=== PATIENT | male | born 1965 | race Caucasian/White ===

== ENCOUNTER 2016-10-25 09:15 | Inpatient (IN) | payer OTHER ==
[2016-10-25 09:38] VITALS: BMI 28.7
--- NOTE | 2016-10-25 10:02 | HP ---
CIWA Score - CIWA Score Nausea/Vomitin-Mild Nausea/No Vomiting Muscle Tremors: 4-Moderate,w/Arms Extend Anxiety: 4-Mod. Anxious/Guarded Agitation: 1-Slight > Activity Paroxysmal Sweats: 1-Minimal Palms Moist Orientation: 0-Oriented Tacttile Disturbances: 1-Very Mild Itch/Numbness Auditory Disturbances: 1-Very Mild Visual Disturbances: 1-Very Mild Sensitivity Headache: 1-Very Mild CIWA-Ar Total Score: 15 Admission ROS BHS - HPI Chief Complaint: I'm here to get clean,I was doing good then relapsed - I want help Allergies/Adverse Reactions: Allergies Allergy/AdvReac Type Severity Reaction Status Date / Time No Known Allergies Allergy Verified 10/25/16 09:54 History of Present Illness: 51 yo gentleman here for detox from alcohol, crack and delano dust use. Previously here in 2004. No seizures but does have black outs. Exam Limitations: Clinical Condition - Ebola screening Have you traveled outside of the country in the last 21 days: No Have you had contact with anyone from an Ebola affected area: No Have you been sick,other than usual withdrawal symptoms: No Do you have a fever: No - Review of Systems Constitutional: Loss of Appetite, Changes in sleep, Weakness EENT: reports: No Symptoms Reported Respiratory: reports: No Symptoms reported Cardiac: reports: No Symptoms Reported GI: reports: Nausea, Indigestion : reports: Frequency Musculoskeletal: reports: Joint Pain Integumentary: reports: Dryness Neuro: reports: Headache, Tremors Endocrine: reports: No Symptoms Reported Hematology: reports: No Symptoms Reported Psychiatric: reports: Mood/Affect Appropiate, Anxious Other Systems: Reviewed and Negative Patient History - Patient Medical History Hx Anemia: No Hx Asthma: No Hx Chronic Obstructive Pulmonary Disease (COPD): No Hx Cancer: No Hx Cardiac Disorders: No Hx Congestive Heart Failure: No Hx Hypertension: No Hx Hypercholesterolemia: No Hx Pacemaker: No HX Cerebrovascular Accident: No Hx Seizures: No Hx Dementia: No Hx Diabetes: No Hx Gastrointestinal Disorders: No Hx Liver Disease: No Hx Genitourinary Disorders: No Hx Sexually Transmitted Disorders: No Hx Renal Disease (ESRD): No Hx Thyroid Disease: No Hx Human Immunodeficiency Virus (HIV): No Hx Hepatitis C: No Hx Depression: Yes (hx meds) Hx Suicide Attempt: Yes (a week ago - took bottle of lexapro ) Hx Bipolar Disorder: Yes Hx Schizophrenia: No - Patient Surgical History Past Surgical History: Yes Other Surgical History: fractured right tibula/fibula with dislocated right ankle around 2013 - PPD History Previous Implant?: Yes Documented Results: Negative w/o proof Implanted On Prior [facility] Admission?: No PPD to be Administered?: Yes - Reproductive History Patient is a Female of Child Bearing Age (11 -55 yrs old): No (male) - Smoking Cessation Smoking history: Current every day smoker Have you smoked in the past 12 months: Yes Aproximately how many cigarettes per day: 20 Initiated information on smoking cessation: Yes 'Breaking Loose' booklet given: 10/25/16 (give on floor) - Substance & Tx. History Hx Alcohol Use: Yes Hx Substance Use: Yes Substance Use Type: Alcohol, Cocaine Hx Substance Use Treatment: Yes (detox, rehab) - Substances Abused Alcohol Route: Oral Frequency: Daily Amount used: three 40oz beers Age of first use: 13 Date of Last Use: 10/24/16 Crack Route: Smoking Frequency: Daily Amount used: $50 Age of first use: 21 Date of Last Use: 10/24/16 PCP Route: Smoking Frequency: 3-6 times per week Amount used: 4 bags Age of first use: 17 Date of Last Use: 10/23/16 Family Disease History - Family Disease History Family Disease History: Heart Disease: Grandparent ( - on etoh, one heart disease), Other: Grandparent, Father (no contact, cocaine use), Mother ( alive,no contact), Brother (two, one used drugs - in retirement), Sister (one ) Admission Physical Exam [facility] - Vital Signs Vital Signs: Vital Signs - 24 hr 10/25/16 09:35 Temperature 95.9 F L Pulse Rate 68 Respiratory 20 Rate Blood Pressure 145/90 - Physical General Appearance: Yes: No Apparent Distress, Appropriately Dressed, Mild Distress, Moderate Distress, Anxious HEENTM: Yes: Normocephalic, Normal Voice, Pharynx Normal, Tm's normal Respiratory: Yes: Normal Breath Sounds, No Respiratory Distress Neck: Yes: No masses,lesions,Nodules, Supple, Trachea in good position Breast: Yes: Breast Exam Deferred Cardiology: Yes: Regular Rhythm, Regular Rate Abdominal: Yes: Soft Genitourinary: Yes: Frequency Back: Yes: Normal Inspection Musculoskeletal: Yes: full range of Motion, Gait Steady Extremities: Yes: Other (right ankle mild swelling - past history of injury) Neurological: Yes: Fully Oriented, Alert, Normal Mood/Affect, Normal Response Integumentary: Yes: Normal Color, Dry, Warm Lymphatic: Yes: Within Normal Limits - Diagnostic (1) Alcohol dependence with uncomplicated withdrawal Current Visit: Yes Status: Chronic (2) Delano dust abuse Current Visit: Yes Status: Chronic (3) Crack cocaine use Current Visit: Yes Status: Chronic (4) Nicotine dependence Current Visit: Yes Status: Chronic Qualifiers: Nicotine product type: cigarettes Substance use status: uncomplicated Qualified Code(s): F17.210 - Nicotine dependence, cigarettes, uncomplicated (5) History of fracture of right ankle Current Visit: Yes Status: Chronic BHS Breath Alcohol Content Breath Alcohol Content: 0 Urine Drug Screen - Results Drug Screen Negative: No Urine Drug Screen Results: NACHO-Cocaine
[2016-10-25] MEDS ORDERED: MAGNESIUM CITRATE 300 ML BOTTLE PO PRN (10:05)
[2016-10-25] MEDS ORDERED: guaiFENesin/D-METHORPHAN HB 10 ML UNIT-DOSE CUPS PO PRN (10:05)
[2016-10-25] MEDS ORDERED: diphenhydrAMINE HCL 50 MG CAPSULE PO PRN (10:05)
[2016-10-25] MEDS ORDERED: ACETAMINOPHEN 325 MG TABLET (FP) PO PRN (10:05)
[2016-10-25] MEDS ORDERED: MAGNESIUM HYDROX 2400MG/30ML ORAL SUSPENSION 30 ML CUP PO PRN (10:05)
[2016-10-25] MEDS ORDERED: hydrOXYzine PAMOATE 50 MG CAPSULE (FP) PO PRN (10:05)
[2016-10-25] MEDS ORDERED: MENTHOL/PHENOL 1 EACH UD MM PRN (10:05)
[2016-10-25] MEDS ORDERED: IBUPROFEN 400 MG TABLET (FP) PO PRN (10:05)
[2016-10-25] MEDS ORDERED: chlordiazePOXIDE HCL 25 MG CAPSULE PO ONE (10:05)
[2016-10-25] MEDS ORDERED: LOPERAMIDE HCL 2 MG CAPSULE PO PRN (10:05)
[2016-10-25] MEDS ORDERED: chlordiazePOXIDE HCL 25 MG CAPSULE PO PRN (10:05)
[2016-10-25] MEDS ORDERED: NICOTINE POLACRILEX 4 MG GUM BUC PRN (10:05)
[2016-10-25] MEDS ORDERED: P-EPHED 60MG/TRIPROLIDI 2.5MG TABLET PO PRN (10:05)
[2016-10-25] MEDS ORDERED: MAG HYDROX/AL HYDROX/SIMETH 30 ML UNIT-DOSE CUP PO PRN (10:05)
[2016-10-25 13:58] LABS: URINE APPEARANCE CLEAR; URINE BILIRUBIN NEGATIVE (NEGATIVE); URINE BLOOD NEGATIVE (NEGATIVE); URINE COLOR YELLOW; URINE GLUCOSE (UA) NEGATIVE (NEGATIVE); URINE KETONE NEGATIVE (NEGATIVE); URINE LEUK ESTERASE NEGATIVE (NEGATIVE); URINE NITRITE NEGATIVE (NEGATIVE); URINE PROTEIN NEGATIVE (NEGATIVE); URINE UROBILINOGEN NEGATIVE E.U./dl (0.2-1.0)
[2016-10-25] MEDS: chlordiazePOXIDE HCL 25 MG CAPSULE PO SCH ×2 (17:31→22:24)
[2016-10-25] MEDS: THIAMINE HCL 100 MG TABLET (FP) PO SCH (22:23)
[2016-10-26] MEDS: chlordiazePOXIDE HCL 25 MG CAPSULE PO SCH ×4 (05:42→22:22)
[2016-10-26] MEDS ORDERED: PRENATAL VITAMINS W/ FOLIC ACID TABLET (FP) PO SCH (10:00)
[2016-10-26 10:44] LABS: MCH 31.9 pg (25.7-33.7); MCHC 33.6 g/dl (32.0-35.9); MEAN PLT VOLUME 8.5 fl (7.5-11.1); PLATELET COUNT 174 K/MM3 (134-434); RDW 14.8 % (11.9-15.9); WHITE BLOOD COUNT 7.5 K/mm3 (4.0-10.0)
[2016-10-26 11:04] LABS: ALBUMIN 3.4 g/dl (3.4-5.0); ANION GAP 8 (8-16); CALCIUM 8.4 mg/dL (8.5-10.1); CO2 27 mmol/L (21-32); GLUCOSE,RANDOM 94 mg/dL (74-106); SGOT/AST 13 U/L (15-37); SGPT/ALT 26 U/L (12-78)
[2016-10-26 11:07] LABS: ALK PHOS 108 U/L (45-117); BILIRUBIN,TOTAL 0.4 mg/dL (0.2-1.0); COCKROFT - GAULT 106.1; CREATININE 1.1 mg/dL (0.7-1.3); TOT PROT 6.2 g/dl (6.4-8.2)
--- NOTE | 2016-10-26 11:50 | PN ---
BHS CIWA - CIWA Score Nausea/Vomitin Muscle Tremors: 4-Moderate,w/Arms Extend Anxiety: 4-Mod. Anxious/Guarded Agitation: 4-Moderately Restless Paroxysmal Sweats: 3 Orientation: 0-Oriented Tacttile Disturbances: 1-Very Mild Itch/Numbness Auditory Disturbances: 0-None Visual Disturbances: 0-None Headache: 1-Very Mild CIWA-Ar Total Score: 20 BHS Progress Note (SOAP) Subjective: nausea, sweats, interrupted sleep, anxiety, tremors, HARRIS Objective: 10/26/16 11:50 Vital Signs - 8 hr 10/26/16 10/26/16 06:17 10:37 Temperature 96.8 F L 97 F L Pulse Rate 62 64 Respiratory 18 18 Rate Blood Pressure 117/72 114/75 Laboratory Tests 10/25/16 10/26/16 10/26/16 13:10 08:00 08:00 WBC 7.5 RBC 4.59 Hgb 14.7 Hct 43.6 MCV 95.0 MCHC 33.6 RDW 14.8 Plt Count 174 MPV 8.5 Sodium 140 Potassium 4.1 Chloride 105 Carbon Dioxide 27 Anion Gap 8 BUN 18 Creatinine 1.1 Creat Clearance w eGFR > 60 Random Glucose 94 Calcium 8.4 L Total Bilirubin 0.4 AST 13 L ALT 26 Alkaline Phosphatase 108 Total Protein 6.2 L Albumin 3.4 Urine Color Yellow Urine Appearance Clear Urine pH 6.0 Ur Specific [place] 1.024 Urine Protein Negative Urine Glucose (UA) Negative Urine Ketones Negative Urine Blood Negative Urine Nitrite Negative Urine Bilirubin Negative Urine Urobilinogen Negative Ur Leukocyte Esterase Negative Assessment: 10/26/16 11:50 withdrawal sx Plan: cont detox, fluids, encoruage ambulation
[2016-10-26 12:06] LABS: HIV 1 & 2 AB NEGATIVE; HIV 1 AGp24 NEGATIVE
--- NOTE | 2016-10-26 14:29 | EKG ---
Test Reason : Blood Pressure : / mmHG Vent. Rate : 064 BPM Atrial Rate : 064 BPM P-R Int : 154 ms QRS Dur : 082 ms QT Int : 414 ms P-R-T Axes : 035 030 021 degrees QTc Int : 427 ms NORMAL SINUS RHYTHM NORMAL ECG NO PREVIOUS ECGS AVAILABLE Confirmed by RAKESH MITCHELL, RIGO ([id number] on 10/26/2016 2:29:43 PM Referred By: Confirmed By:RIGO CAMERON MD
[2016-10-26] MEDS: THIAMINE HCL 100 MG TABLET (FP) PO SCH (22:22)
[2016-10-27] MEDS: chlordiazePOXIDE HCL 25 MG CAPSULE PO SCH (05:51)
[2016-10-27 06:31] VITALS: BP 105/75; PULSE 66; TEMP 97
--- NOTE | 2016-10-27 10:56 | DS ---
[facility] Detox Discharge Summary Admission Date: 10/25/16 Discharge Date: 10/27/16 - History Present History: Alcohol Dependence Pertinent Past History: Denies - Physical Exam Results Vital Signs: Vital Signs Temperature 97.0 F L 10/27/16 06:30 Pulse Rate 66 10/27/16 06:30 Respiratory Rate 16 10/27/16 06:30 Blood Pressure 105/75 10/27/16 06:30 O2 Sat by Pulse Oximetry (%) Pertinent Admission Physical Exam Findings: Withdrawal sx. Laboratory Last Values WBC 7.5 K/mm3 (4.0-10.0) 10/26/16 08:00 RBC 4.59 M/mm3 (4.00-5.60) 10/26/16 08:00 Hgb 14.7 GM/dL (11.7-16.9) 10/26/16 08:00 Hct 43.6 % (35.4-49) 10/26/16 08:00 MCV 95.0 fl (80-96) 10/26/16 08:00 MCHC 33.6 g/dl (32.0-35.9) 10/26/16 08:00 RDW 14.8 % (11.9-15.9) 10/26/16 08:00 Plt Count 174 K/MM3 (134-434) 10/26/16 08:00 MPV 8.5 fl (7.5-11.1) 10/26/16 08:00 Sodium 140 mmol/L (136-145) 10/26/16 08:00 Potassium 4.1 mmol/L (3.5-5.1) 10/26/16 08:00 Chloride 105 mmol/L (98-107) 10/26/16 08:00 Carbon Dioxide 27 mmol/L (21-32) 10/26/16 08:00 Anion Gap 8 (8-16) 10/26/16 08:00 BUN 18 mg/dL (7-18) 10/26/16 08:00 Creatinine 1.1 mg/dL (0.7-1.3) 10/26/16 08:00 Creat Clearance w eGFR > 60 (>60) 10/26/16 08:00 Random Glucose 94 mg/dL (74-106) 10/26/16 08:00 Calcium 8.4 mg/dL (8.5-10.1) L 10/26/16 08:00 Total Bilirubin 0.4 mg/dL (0.2-1.0) 10/26/16 08:00 AST 13 U/L (15-37) L 10/26/16 08:00 ALT 26 U/L (12-78) 10/26/16 08:00 Alkaline Phosphatase 108 U/L (45-117) 10/26/16 08:00 Total Protein 6.2 g/dl (6.4-8.2) L 10/26/16 08:00 Albumin 3.4 g/dl (3.4-5.0) 10/26/16 08:00 Urine Color Yellow 10/25/16 13:10 Urine Appearance Clear 10/25/16 13:10 Urine pH 6.0 (5.0-8.0) 10/25/16 13:10 Ur Specific [place] 1.024 (1.001-1.035) 10/25/16 13:10 Urine Protein Negative (NEGATIVE) 10/25/16 13:10 Urine Glucose (UA) Negative (NEGATIVE) 10/25/16 13:10 Urine Ketones Negative (NEGATIVE) 10/25/16 13:10 Urine Blood Negative (NEGATIVE) 10/25/16 13:10 Urine Nitrite Negative (NEGATIVE) 10/25/16 13:10 Urine Bilirubin Negative (NEGATIVE) 10/25/16 13:10 Urine Urobilinogen Negative E.U./dl (0.2-1.0) 10/25/16 13:10 Ur Leukocyte Esterase Negative (NEGATIVE) 10/25/16 13:10 RPR Titer Nonreactive (NONREACTIVE) 10/26/16 08:00 HIV 1&2 Antibody Screen Negative 10/26/16 08:00 HIV P24 Antigen Negative 10/26/16 08:00 labs noted - Treatment Patient has Accepted a Rehab Referral to: [facility] - Medication Discharge Medications: Ambulatory Orders Escitalopram Oxalate [Lexapro -] 20 mg PO DAILY 10/25/16 - Diagnosis (1) Alcohol dependence with uncomplicated withdrawal Current Visit: Yes Status: Chronic (2) Nicotine dependence Current Visit: Yes Status: Chronic Qualifiers: Nicotine product type: cigarettes Substance use status: uncomplicated Qualified Code(s): F17.210 - Nicotine dependence, cigarettes, uncomplicated (3) Cocaine dependence, uncomplicated Current Visit: Yes Status: Acute - AMA Did Patient Leave Against Medical Advice: No
[2016-10-27] MEDS ORDERED: chlordiazePOXIDE 5 MG CAPSULE PO SCH (17:00)
[2016-10-28] MEDS ORDERED: chlordiazePOXIDE HCL 10 MG CAPSULE PO SCH (17:00)
== END 2016-10-27 08:32 | disposition home or self-care (01) | DRG 774 ==
LOC: YASAS 09:15 → Y3N 11:46
PROVIDERS: ADMIT Internal Medicine; ATTEND Internal Medicine
PROC: HZ2ZZZZ Detoxification Services for Substance Abuse Treatment (ICD-10-PCS; principal; 2016-10-25)
DX: F10.230 Alcohol dependence with withdrawal, uncomplicated (principal); F14.20 Cocaine dependence, uncomplicated; F17.210 Nicotine dependence, cigarettes, uncomplicated; Z91.5 Personal history of self-harm
CPT/HCPCS: 36415; 80053; 81003; 85027; 86593; 87389; 93005; 93010